=== PATIENT | female | born 1935 | race Caucasian/White ===

== ENCOUNTER 2017-01-05 16:52 | Emergency (ER) | payer MEDICARE ==
[2017-01-05 12:58] LABS: BASOPHILS 0.5 %; BASOPHILS ABSOLUTE 0.03 10/3/uL (0.0-0.16); EOSINOPHILS 1.6 %; HEMOGLOBIN 12.9 g/dL (12.0-16.0); IMMATURE GRANULOCYTES 0.3 %; IMMATURE GRANULOCYTES ABSOLUTE 0.02 10/3/uL (0.0-0.11); LYMPHOCYTES 18.3 %; LYMPHOCYTES ABSOLUTE 1.15 10/3/uL (0.67-4.30); MEAN CORPUS HGB CONC 32.3 g/dL (32.0-36.0); MEAN CORPUSCULAR HEMOGLOB 27.9 pg (26.0-34.0); MEAN PLATELET VOLUME 10.4 fL (9.2-13.0); MONOCYTES 4.1 %; MONOCYTES ABSOLUTE 0.26 10/3/uL (0.21-1.20); NEUTROPHILS 75.2 %; NEUTROPHILS ABSOLUTE 4.71 10/3/uL (2.02-8.40); PLATELET COUNT 136 10/3/uL (150-400)
[2017-01-05 13:03] LABS: ER CBC TAT 0 Hrs 11 Mins; HEMATOCRIT 39.9 % (36.0-48.0); MANUAL DIFF NO %; MEAN CORPUSCULAR VOLUME 86.4 fL (80-100); RED CELL COUNT 4.62 10/6/uL (4.0-5.6); WHITE BLOOD CELLS 6.3 10/3/uL (4.5-10.5)
[2017-01-05 13:05] LABS: INTERNATIONAL NORMAL RATI 2.3 UNITS (-); PARTIAL THROMBO TIME 31.7 SEC (22.5-37.2)
[2017-01-05 13:21] LABS: CALCIUM, SERUM 9.3 MG/DL (8.5-10.4); CHEST PAIN PROFILE TAT 0 Hrs 29 Mins; CHLORIDE, SERUM 102 MMOL/L (96-112); CO2 (CARBON DIOXIDE) 27 MMOL/L (24-34); CREATININE 1.19 MG/DL (0.55-1.02); GFR AFRICAN AMERICAN 50 ML/MIN (>=60); GFR NON AFRICAN AMERICAN 43 ML/MIN (>=60); POTASSIUM, SERUM 4.7 MMOL/L (3.5-5.3); SODIUM, SERUM 138 MMOL/L (135-148); TROPONIN I <0.02 NG/ML (<0.05)
[2017-01-05 13:22] LABS: BUN (BLOOD UREA NITROGEN) 23 MG/DL (6-23); GLUCOSE, SERUM 185 MG/DL (60-99); ULTRASENSITIVE TSH 0.954 MCIU/ML (0.358-3.740)
[~2017-01-05 16:52] MED LIST: ASAB PO; BETAPACE80 PO; BIOTIN5 MG PO; CALTRA600D PO; CO Q-10100 MG PO; CO Q10 PO; COREG6 PO; COZ25 PO; COZ50 PO; DIABETIC VITAMIN PO; ELIQUIS 5 MG TAB5 MG PO; FORTAMET1000 MG PO; FORTAMET500 MG PO; FOSAMAX35 MG PO; GLUCOPHXR PO; HARD NAILS PO; KEPPRA1000 MG PO; KEPPRA750 MG PO; LEVOTHYROXIN88 MCG PO; MEGA RED KRILL OIL PO; NEUR300 PO; NORV25 PO; NORV5 PO; OCUVITE PO; OMEGA RED KRILL PO; PLAVIX PO; PRAVACHOL80 MG PO; PROLIA60 MG/1 ML SC; STARLIX120 PO; TYLENOL ARTH650 MG PO; VITAMIN B-121000 MC1 SL; VITAMIN B-122500 MCG SL; XARELTO20 MG PO
== END 2017-01-05 20:16 | disposition home or self-care (01) ==
LOC: ER 16:52
PROVIDERS: Hospitalist
DX: I48.91 Unspecified atrial fibrillation (principal); R79.1 Abnormal coagulation profile; J44.9 Chronic obstructive pulmonary disease, unspecified; J45.909 Unspecified asthma, uncomplicated; I25.2 Old myocardial infarction; E11.9 Type 2 diabetes mellitus without complications; Z88.2 Allergy status to sulfonamides; Z88.8 Allergy status to other drugs, medicaments and biological substances; Z88.5 Allergy status to narcotic agent; Z79.84 Long term (current) use of oral hypoglycemic drugs; Z79.82 Long term (current) use of aspirin; Z79.899 Other long term (current) drug therapy
CPT/HCPCS: 80048; 83735; 84443; 84484; 85025; 85610; 85730; 93005; 93225; 96365; 96372; 96376; 99291; A9270-GY